=== PATIENT | male | born 1985 | race Two or more races ===

== ENCOUNTER 2023-01-10 05:15 | Emergency (ER) | payer SELFPAY ==
[~2023-01-10] VITALS: Ht 180.3 cm; Wt 129.5 kg
[2023-01-10] MEDS ORDERED: amLODIPine BESYLATE 5 MG TAB PO ONE (05:45)
[2023-01-10 06:40] VITALS: BP 217/121
[2023-01-10] MEDS ORDERED: cloNIDine HCL 0.1 MG TAB PO ONE (06:45)
[2023-01-10 06:56] LABS: Urine Bacteria NONE SEEN /hpf (None Seen); Urine Blood Negative /uL (Negative); Urine Specific Gravity 1.028 (1.001-1.035); Urine WBC 3 /hpf (0 - 3)
[2023-01-10 07:39] LABS: Basophils # (auto) 0.1 10 ^3/uL (0-0.2); Basophils % (auto) 1.2 % (0.0-2.0); Eosinophils # (auto) 0.9 10 ^3/uL (0-0.8); Eosinophils % (auto) 9.4 % (0.0-7.0); Hematocrit 49.7 % (41.0-53.0); Hemoglobin 17.4 g/dL (13.5-17.5); Lymphocytes # (auto) 2.9 10 ^3/uL (0.4-5.4); Lymphocytes % (auto) 31.4 % (10.0-50.0); Mean Corpuscular Hemoglobin 31.7 pg (28.0-32.0); Mean Corpuscular Hgb Conc. 34.9 g/dL (32.0-36.0); Mean Corpuscular Volume 90.9 fL (80.0-100.0); Monocytes # (auto) 0.6 10 ^3/uL (0-1.3); Monocytes % (auto) 6.6 % (0.0-12.0); Neutrophils # (auto) 4.7 10 ^3/uL (1.6-8.6); Neutrophils % (auto) 51.4 % (37.0-80.0); Nucleated Red Blood Cells % 0.3 %; Red Blood Cells 5.47 10^6/uL (4.5-5.90); Red Cell Distribution Width 12.6 % (11.8-14.3); White Blood Cell 9.2 10^3/uL (4.4-10.8)
[2023-01-10 08:17] LABS: Calcium 8.6 mg/dL (8.5-10.1); Potassium 3.8 mmol/L (3.5-5.1)
[2023-01-10 08:22] LABS: Albumin 3.8 g/dL (3.4-5.0); Bilirubin, Total 0.4 mg/dL (0.2-1.0)
[2023-01-10] MEDS ORDERED: InsuLIN REG 1unit/0.01ml Soln (100units/ml) SC ONE (08:30)
[2023-01-10] MEDS ORDERED: KETOROLAC TROMETH 60MG/2ML VIAL IM ONE (08:30)
== END 2023-01-10 08:52 | disposition left against medical advice (07) ==
LOC: ER 05:15
DX: S39.012A Strain of muscle, fascia and tendon of lower back, initial encounter (principal); E11.9 Type 2 diabetes mellitus without complications; I10 Essential (primary) hypertension; X58.XXXA Exposure to other specified factors, initial encounter; Y93.89 Activity, other specified; Y92.89 Other specified places as the place of occurrence of the external cause; Y99.8 Other external cause status
CPT/HCPCS: 36415; 74176; 80053; 81001; 83690; 85025

== ENCOUNTER 2024-01-07 04:39 | Inpatient (IN) | payer MEDICAID, OTHER ==
[~2024-01-07] VITALS: Ht 182.9 cm; Wt 129.5 kg
[2024-01-07 05:00] LABS: Basophils # (auto) 0.4 10 ^3/uL (0-0.2); Basophils % (auto) 4.2 % (0.0-2.0); Eosinophils # (auto) 0 10 ^3/uL (0-0.8); Eosinophils % (auto) 0.2 % (0.0-7.0); Hematocrit 50.7 % (41.0-53.0); Hemoglobin 17.8 g/dL (13.5-17.5); Lymphocytes # (auto) 0.8 10 ^3/uL (0.4-5.4); Lymphocytes % (auto) 9.3 % (10.0-50.0); Mean Corpuscular Hemoglobin 31.7 pg (28.0-32.0); Mean Corpuscular Volume 90.4 fL (80.0-100.0); Monocytes # (auto) 0.9 10 ^3/uL (0-1.3); Monocytes % (auto) 10.3 % (0.0-12.0); Neutrophils # (auto) 6.8 10 ^3/uL (1.6-8.6); Red Blood Cells 5.61 10^6/uL (4.5-5.90); Red Cell Distribution Width 12.7 % (11.8-14.3)
[2024-01-07] MEDS: cloNIDine HCL 0.1 MG TAB PO ONE (05:13)
[2024-01-07 05:17] LABS: Alanine Aminotransferase 38 U/L (7-40); Albumin 4.5 g/dL (3.2-4.8); Alkaline Phosphatase 59 U/L (46-116); Anion Gap 11 (5-15); Aspartate Aminotransferase 33 U/L (13-40); BUN/Creatinine Ratio 7.1 (10.0-20.0); Bilirubin, Total 0.6 mg/dL (0.2-1.0); Blood Urea Nitrogen 8 mg/dL (9-23); Calcium 9.5 mg/dL (8.7-10.4); Carbon Dioxide 26 mmol/L (20-30); Chloride 98 mmol/L (98-107); Glucose 247 mg/dL (74-106); Potassium 3.3 mmol/L (3.5-5.1); Sodium 135 mmol/L (136-145)
[2024-01-07 05:50] VITALS: PULSE 81; RESP 24; O2SAT 94
[2024-01-07] MEDS: ASPirin-EC 325mg tab PO ONE (05:53)
[2024-01-07] MEDS: ENOXAPARIN SOD 150 MG/1 ML SYRINGE SC ONE (05:54)
[2024-01-07] MEDS: NITROGLYCERIN 0.4 MG SL TAB SL ONE (06:30)
[2024-01-07] MEDS: POTASSIUM EFFERVESENT TAB 25 MEQ PO ONE (07:02)
[2024-01-07 07:27] LABS: INR 1.05 (0.9-1.15); Prothrombin Time 11.1 sec (9.3-11.8)
[2024-01-07 09:15] VITALS: PULSE 87; RESP 18; O2SAT 92
[2024-01-07 09:25] LABS: Triglycerides 173 mg/dL (< 150)
[2024-01-07 09:26] LABS: LDL Cholesterol 144 mg/dL (< 100)
[2024-01-07 09:27] LABS: Cholesterol 213 mg/dL (< 200); HDL Cholesterol 46 mg/dL (40-59)
[2024-01-07 10:09] LABS: Amphetamine Screen, Urine Neg (NEGATIVE)
[2024-01-07 10:11] LABS: Barbiturate Scree,Urine Neg (NEGATIVE); Benzodiazephine Screen, Urine Neg (NEGATIVE)
[2024-01-07 10:12] LABS: Cannabinoid Screen, Urine Neg (NEGATIVE); Cocaine Screen, Urine Neg (NEGATIVE); Opiate Scree,Urine Neg (NEGATIVE); Phencyclidine Screen, Urine Neg (NEGATIVE)
[2024-01-07 10:13] LABS: Urine Bacteria None Seen /hpf (None Seen)
[2024-01-07] MEDS ORDERED: ONDANSETRON HCL 4 MG/2 ML VIAL IV PRN (10:15)
[2024-01-07] MEDS ORDERED: NITROGLYCERIN 0.4 MG SL TAB SL PRN (10:15)
[2024-01-07] MEDS ORDERED: MORPHINE SULFATE INJ 2 MG/ml SYRG IV PRN (10:15)
[2024-01-07] MEDS ORDERED: DEXTROSE (50%) 50ML SYRG IV PRN (10:15)
[2024-01-07 10:27] LABS: Urine Blood Negative /uL (Negative); Urine Clarity Turbid (Clear); Urine Color Yellow (Yellow); Urine Hyaline Cast MOD /lpf (0 - 2); Urine Mucus MODERATE (None Seen); Urine Protein, UAD 3+ (Negative); Urine Specific Gravity 1.037 (1.001-1.035); Urine Urobilinogen 3 mg/dL (Negative); Urine WBC 9 /hpf (0 - 3)
[2024-01-07] MEDS: POTASSIUM CHL 20 Meq TABLET PO ONE (11:25)
[2024-01-07] MEDS: SODIUM CHLORIDE 0.9% 1,000 ML IV SCH (11:25)
[2024-01-07] MEDS: LISINOPRIL 5 MG TAB PO ONE (11:26)
[2024-01-07] MEDS: ACCU-CHEK COMFORT CURVE STRIP VI SCH (12:13)
[2024-01-07] MEDS: InsuLIN REG 1unit/0.01ml Soln (100units/ml) SC SCH (12:16)
[2024-01-07] MEDS: ACETAMINOPHEN 325 MG TAB PO PRN (14:21)
[2024-01-07 19:45] VITALS: PULSE 95; RESP 18; O2SAT 96
[2024-01-07] MEDS: ENOXAPARIN SOD 150 MG/1 ML SYRINGE SC SCH (21:24)
[2024-01-07] MEDS: ATORVASTATIN 20 MG TAB PO SCH (21:24)
[2024-01-07] MEDS: hydrALAZINE HCL 20 MG/ML VL IV PRN (21:26)
[2024-01-07] MEDS ORDERED: ENOXAPARIN SOD 100 MG/1 ML SYRINGE SC SCH (22:00)
[2024-01-07 22:59] VITALS: BP 159/96; PULSE 88; RESP 18; TEMP 101.9; O2SAT 93
[2024-01-07 23:03] VITALS: PULSE 95; RESP 18; O2SAT 95
[2024-01-08] VITALS (9 sets, daily range): BP systolic 147–197; BP diastolic 73–116; PULSE 79–108; RESP 18–20; TEMP 98.9–103.1; O2SAT 92–100
[2024-01-08 07:03] LABS: Basophils # (auto) 0.1 10 ^3/uL (0-0.2); Basophils % (auto) 0.9 % (0.0-2.0); Eosinophils # (auto) 0 10 ^3/uL (0-0.8); Eosinophils % (auto) 0.1 % (0.0-7.0); Hemoglobin 15.9 g/dL (13.5-17.5); Lymphocytes # (auto) 1.9 10 ^3/uL (0.4-5.4); Lymphocytes % (auto) 27.2 % (10.0-50.0); Mean Corpuscular Hemoglobin 31.2 pg (28.0-32.0); Mean Corpuscular Hgb Conc. 34.6 g/dL (32.0-36.0); Monocytes # (auto) 0.9 10 ^3/uL (0-1.3); Monocytes % (auto) 12.9 % (0.0-12.0); Neutrophils # (auto) 4.1 10 ^3/uL (1.6-8.6); Neutrophils % (auto) 58.9 % (37.0-80.0); Red Blood Cells 5.11 10^6/uL (4.5-5.90); Red Cell Distribution Width 12.9 % (11.8-14.3); White Blood Cell 6.9 10^3/uL (4.4-10.8)
[2024-01-08 07:55] LABS: Alanine Aminotransferase 34 U/L (7-40); Alkaline Phosphatase 45 U/L (46-116); Anion Gap 8 (5-15); BUN/Creatinine Ratio 9.6 (10.0-20.0); Blood Urea Nitrogen 9 mg/dL (9-23); Carbon Dioxide 28 mmol/L (20-30); Chloride 99 mmol/L (98-107); Glucose 180 mg/dL (74-106); Potassium 3.6 mmol/L (3.5-5.1); Sodium 135 mmol/L (136-145)
[2024-01-08 07:56] LABS: Aspartate Aminotransferase 37 U/L (13-40)
[2024-01-08 08:37] LABS: Bilirubin, Total 0.6 mg/dL (0.2-1.0)
[2024-01-08] MEDS: ASPirin 81 mg TAB PO SCH (08:57)
[2024-01-08] MEDS: LISINOPRIL 5 MG TAB PO SCH (08:58)
[2024-01-08] MEDS: AZITHROMYCIN 500MG/ 250ML 250 ML IV SCH (10:36)
[2024-01-09] MEDS ORDERED: AZITHROMYCIN 500MG/ 250ML 250 ML IV SCH (10:00)
== END 2024-01-08 22:54 | disposition left against medical advice (07) | DRG 145 ==
LOC: ER 04:39 → TELE 10:10 → TELE-WESTW 22:40
PROVIDERS: ADMIT Registered Nurse; ATTEND Internal Medicine Pulmonary Disease
DX: J20.9 Acute bronchitis, unspecified (principal); I21.A1 Myocardial infarction type 2; I16.0 Hypertensive urgency; E11.65 Type 2 diabetes mellitus with hyperglycemia; E66.01 Morbid (severe) obesity due to excess calories; E78.5 Hyperlipidemia, unspecified; I10 Essential (primary) hypertension; I25.10 Atherosclerotic heart disease of native coronary artery without angina pectoris; Z53.29 Procedure and treatment not carried out because of patient's decision for other reasons; Z68.38 Body mass index [BMI] 38.0-38.9, adult
CPT/HCPCS: 36415; 71045; 80053; 80061; 80307; 81001; 82962; 83036; 83605; 83735; 84443; 84484; 85025; 85610; 87040; 93005; 93306; 96372; 96374; 99291; G0378; J1815

== ENCOUNTER 2024-02-18 11:38 | Emergency (ER) | payer MEDICAID ==
[~2024-02-18] VITALS: Ht 182.9 cm; Wt 129.7 kg
[2024-02-18] MEDS: KETOROLAC TROMETH 30 MG/ML 1ML VIAL IM ONE (13:22)
[2024-02-18] MEDS: ACETAMINOPHEN 500 MG TAB PO ONE (13:26)
[2024-02-18] MEDS ORDERED: NAPR-746 PO (14:24)
[2024-02-18 14:30] VITALS: BP 155/102; PULSE 89; RESP 16; TEMP 98.6; O2SAT 98
== END 2024-02-18 14:31 | disposition home or self-care (01) ==
LOC: ER 11:51
DX: S83.91XA Sprain of unspecified site of right knee, initial encounter (principal); E11.9 Type 2 diabetes mellitus without complications; I10 Essential (primary) hypertension; W16.92XA Jumping or diving into unspecified water causing other injury, initial encounter; Y93.89 Activity, other specified; Y92.34 Swimming pool (public) as the place of occurrence of the external cause; Y99.8 Other external cause status
CPT/HCPCS: 73562; 96372; 99283; J1885

== ENCOUNTER 2024-05-05 15:50 | Emergency (ER) | payer SELFPAY ==
[~2024-05-05] VITALS: Ht 180.3 cm; Wt 120.0 kg
[2024-05-05 15:50] VITALS: BP 151/98; RESP 18; O2SAT 96
[~2024-05-05 15:50] MED LIST: NAPR-746 PO
[2024-05-05 16:02] VITALS: PULSE 89
[2024-05-05 17:09] LABS: Basophils # (auto) 0.1 10 ^3/uL (0-0.2); Basophils % (auto) 0.6 % (0.0-2.0); Eosinophils # (auto) 0.9 10 ^3/uL (0-0.8); Hematocrit 45.3 % (41.0-53.0); Hemoglobin 16.2 g/dL (13.5-17.5); Lymphocytes # (auto) 3.8 10 ^3/uL (0.4-5.4); Lymphocytes % (auto) 28.7 % (10.0-50.0); Mean Corpuscular Hemoglobin 32.1 pg (28.0-32.0); Mean Corpuscular Hgb Conc. 35.9 g/dL (32.0-36.0); Mean Corpuscular Volume 89.5 fL (80.0-100.0); Monocytes % (auto) 7.5 % (0.0-12.0); Neutrophils # (auto) 7.4 10 ^3/uL (1.6-8.6); Neutrophils % (auto) 56.2 % (37.0-80.0); Nucleated Red Blood Cells % 0.1 %; Platelet Count (auto) 271 10^3/uL (140-450); Red Blood Cells 5.06 10^6/uL (4.5-5.90); Red Cell Distribution Width 12.3 % (11.8-14.3); White Blood Cell 13.1 10^3/uL (4.4-10.8)
[2024-05-05 17:28] LABS: Alanine Aminotransferase 29 U/L (7-40); Alkaline Phosphatase 68 U/L (46-116); Anion Gap 11 (5-15); Aspartate Aminotransferase 21 U/L (13-40); BUN/Creatinine Ratio 12.6 (10.0-20.0); Blood Urea Nitrogen 25 mg/dL (9-23); Calcium 10.2 mg/dL (8.7-10.4); Carbon Dioxide 28 mmol/L (20-31); Chloride 99 mmol/L (98-107); Glucose 164 mg/dL (74-106); Magnesium 1.5 mg/dL (1.6-2.6); Sodium 138 mmol/L (136-145)
[2024-05-05 17:29] LABS: Bilirubin, Total 0.4 mg/dL (0.2-1.0); Total Protein 8.2 g/dL (5.7-8.2)
== END 2024-05-05 23:55 | disposition left against medical advice (07) ==
LOC: ER 15:50
DX: R42 Dizziness and giddiness (principal); Z53.21 Procedure and treatment not carried out due to patient leaving prior to being seen by health care provider; Z79.899 Other long term (current) drug therapy
CPT/HCPCS: 36415; 70450; 71046; 80053; 83735; 84484; 85025; 93005